=== PATIENT | male | born 1985 | race African-American/Black ===

== ENCOUNTER 2019-06-14 19:31 | Emergency (ER) | payer SELFPAY ==
[~2019-06-14] VITALS: Ht 175.3 cm; Wt 145.5 kg
[2019-06-14 19:54] LABS: BASO # 0.1 x10^3/uL (0.0-0.2); BASO % 1 % (0-3); EOS # 0.3 x10^3/uL (0.0-0.7); EOS % 4 % (0-3); HEMATOCRIT 44.6 % (39.0-53.0); HEMOGLOBIN 14.7 g/dL (13.0-17.5); LYMPH # 1.7 x10^3/uL (1.0-4.8); LYMPH % 23 % (24-48); MEAN CORPUSCULAR HEMOGLOBIN 28 pg (25-35); MEAN CORPUSCULAR HGB CONC 33 g/dL (31-37); MEAN CORPUSCULAR VOLUME 86 fL (79-100); MONO # 0.5 x10^3/uL (0.0-1.1); MONO % 7 % (0-9); NEUT # 4.9 x10^3/uL (1.8-7.7); NEUT % 66 % (31-73); PLATELET COUNT 304 x10^3/uL (140-400); RED BLOOD COUNT 5.19 x10^6/uL (4.30-5.70); RED CELL DISTRIBUTION WIDTH 14.5 % (11.5-14.5); WHITE BLOOD COUNT 7.4 x10^3/uL (4.0-11.0)
[2019-06-14 20:13] LABS: CALCIUM 9.2 mg/dL (8.5-10.1); GFR 102.9; POTASSIUM 4.3 mmol/L (3.5-5.1)
[2019-06-14 20:19] LABS: ALBUMIN 3.4 g/dL (3.4-5.0); TOTAL BILIRUBIN 0.3 mg/dL (0.2-1.0); TOTAL PROTEIN 6.9 g/dL (6.4-8.2)
--- NOTE | 2019-06-14 20:36 | RAD ---
AP chest. HISTORY: Chest pain AP view was taken of the chest. Lungs are clear. Heart is normal in size without heart failure. There is no pleural effusion. IMPRESSION: 1. No acute chest disease. Electronically signed by: Russell Sandra MD (06/14/2019 8:33 PM) [id number]
[2019-06-14] MEDS ORDERED: NITROGLYCERIN SUBLINGUAL 0.4 MG BOTTLE OF 25. SL ONE (22:45)
[2019-06-14] MEDS ORDERED: ASPIRIN CHEWABLE 81 MG TABLET. PO ONE (22:45)
[2019-06-14] MEDS ORDERED: CONTRAST GIVEN. MC PRN (22:45)
[2019-06-14] MEDS ORDERED: IOHEXOL 350 MG/ML 100 ML VIAL. IV ONE (22:45)
[2019-06-14] MEDS ORDERED: FAMOTIDINE 20 MG/2 ML VIAL IVP ONE (22:45)
--- NOTE | 2019-06-14 23:29 | RAD ---
PQRS Compliance Statement: One or more of the following individualized dose reduction techniques were utilized for this examination: 1. Automated exposure control 2. Adjustment of the mA and/or kV according to patient size 3. Use of iterative reconstruction technique CT CHEST WITH CONTRAST, PULMONARY ANGIOGRAM History: Chest pain. Comparison: None. Technique: Helical CT of the chest was performed after the administration of 100 cc of Omnipaque 350 intravenous contrast according to PE protocol. Axial and coronal reconstructions were obtained. 3-D MIP images were constructed to better evaluate the pulmonary arteries. Findings: Pulmonary arteries are adequately opacified. There is no evidence of pulmonary embolism. No thoracic aortic dissection. Mild bilateral gynecomastia. 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 Great vessels are normal caliber, there is pulsation artifact. Cardiac size normal, no pericardial effusion. No adenopathy in the chest. Subcentimeter bilateral hilar lymph nodes. There is no pleural abnormality. The central airways are patent. No lung consolidation. Borderline fatty infiltration of the liver. Thoracic spine alignment is maintained. IMPRESSION: 1. There is no pulmonary embolus. 2. Borderline fatty infiltration of the liver. Electronically signed by: Andrea Fisher MD (06/14/2019 11:26 PM) [id number]
[2019-06-15] VITALS: BP 103/66
[2019-06-15] MEDS ORDERED: TRAM50TA PO (00:07)
--- NOTE | 2019-06-15 04:50 | EKG ---
[facility] [address] [place] [address] Test Date: 2019-06-14 Test Time: 19:40:10 Pat Name: LIZZ RIVERA Department: Room: Gender: M [employer] Offset: : 1985 Requested By: EUGENIA WASHINGTON Order Number: [id number] Reading MD: Measurements Intervals [place] Rate: 68 P: 0 MA: 140 QRS: -8 QRSD: 94 T: 4 QT: 354 QTc: 377 Interpretive Statements SINUS RHYTHM LEFTWARD AXIS NO SPECIFIC ECG ABNORMALITIES RI6.01 No previous ECG available for comparison
--- NOTE | 2019-06-15 05:26 | PHYS DOC ---
Past Medical History Past Medical History: No Pertinent History Past Surgical History: No Surgical History Smoking Status: Never Smoker Alcohol Use: None Drug Use: None Adult General Chief Complaint Chief Complaint: CHEST PAIN HPI HPI Patient is a 34 year old male who presents with chest pain left pectoral region. Symptoms began yesterday at [place] while clapping. Chest pain is described as sharp and reproduces palpation, and limb movement. Denies shortness breath nausea vomiting and sweats. No leg pain or swelling. No other acute symptoms or complaints. [] Review of Systems Review of Systems ROS as per HPI All other systems were reviewed and found to be within normal limits, except as documented in this note. Current Medications Current Medications Current Medications Medications (Trade) Dose Ordered Sig/Lul Start Time Stop Time Status Last Admin Dose Admin Aspirin (Children'S Aspirin) 324 mg 1X ONCE 06/14/19 22:45 06/14/19 22:46 DC 06/14/19 22:57 324 MG Famotidine (Pepcid Vial) 20 mg 1X ONCE 06/14/19 22:45 06/14/19 22:46 DC 06/14/19 22:57 20 MG Info (CONTRAST GIVEN -- Rx MONITORING) 1 each PRN DAILY PRN 06/14/19 22:45 06/15/19 00:16 DC Iohexol (Omnipaque 350 Mg/ml) 100 ml 1X ONCE 06/14/19 22:45 06/14/19 22:46 DC 06/14/19 22:57 100 ML Nitroglycerin (Nitrostat) 0.4 mg 1X ONCE 06/14/19 22:45 06/14/19 22:46 DC 06/14/19 22:56 0.4 MG Allergies Allergies Allergies Coded Allergies Type Severity Reaction Last Updated Verified No Known Drug Allergies 06/14/19 No Physical Exam Physical Exam Constitutional: Well developed, well nourished, no acute distress, non-toxic appearance. [] HENT: Normocephalic, atraumatic, bilateral external ears normal, oropharynx moist, nose normal. [] Eyes: PERRLA, EOMI, conjunctiva normal, no discharge. [] Neck: Normal range of motion, no tenderness, supple, no stridor. [] Cardiovascular:Heart rate regular rhythm, no murmur [] Lungs & Thorax: Bilateral breath sounds clear to auscultation [] Abdomen: Bowel sounds normal, soft, no tenderness. [] Skin: Warm, dry, no erythema, no rash. [] Back: No tenderness. [] Extremities: No tenderness, no cyanosis, no clubbing, ROM intact, no edema. [] Neurologic: Alert and oriented X 3, CN -12 grossly intact, normal motor fu nction, normal sensory function, no focal deficits noted. [] Psychologic: Affect normal, judgement normal, mood normal. [] Current Patient Data Vital Signs Vital Signs Date Time Temp Pulse Resp B/P (MAP) Pulse Ox O2 Delivery O2 Flow Rate FiO2 06/15/19 00:00 72 13 103/66 (78) 99 Room Air 06/14/19 19:35 98.2 98.2 Lab Values Laboratory Tests Test 06/14/19 19:40 White Blood Count 7.4 x10^3/uL (4.0-11.0) Red Blood Count 5.19 x10^6/uL (4.30-5.70) Hemoglobin 14.7 g/dL (13.0-17.5) Hematocrit 44.6 % (39.0-53.0) Mean Corpuscular Volume 86 fL (79-100) Mean Corpuscular Hemoglobin 28 pg (25-35) Mean Corpuscular Hemoglobin Concent 33 g/dL (31-37) Red Cell Distribution Width 14.5 % (11.5-14.5) Platelet Count 304 x10^3/uL (140-400) Neutrophils (%) (Auto) 66 % (31-73) Lymphocytes (%) (Auto) 23 % (24-48) L Monocytes (%) (Auto) 7 % (0-9) Eosinophils (%) (Auto) 4 % (0-3) H Basophils (%) (Auto) 1 % (0-3) Neutrophils # (Auto) 4.9 x10^3/uL (1.8-7.7) Lymphocytes # (Auto) 1.7 x10^3/uL (1.0-4.8) Monocytes # (Auto) 0.5 x10^3/uL (0.0-1.1) Eosinophils # (Auto) 0.3 x10^3/uL (0.0-0.7) Basophils # (Auto) 0.1 x10^3/uL (0.0-0.2) D-Dimer (Altagracia) 0.54 ug/mlFEU (0.00-0.50) H Sodium Level 141 mmol/L (136-145) Potassium Level 4.3 mmol/L (3.5-5.1) Chloride Level 104 mmol/L (98-107) Carbon Dioxide Level 29 mmol/L (21-32) Anion Gap 8 (6-14) Blood Urea Nitrogen 10 mg/dL (8-26) Creatinine 1.0 mg/dL (0.7-1.3) Estimated GFR (Cockcroft-Gault) 102.9 BUN/Creatinine Ratio 10 (6-20) Glucose Level 111 mg/dL (70-99) H Calcium Level 9.2 mg/dL (8.5-10.1) Total Bilirubin 0.3 mg/dL (0.2-1.0) Aspartate Amino Transferase (AST) 24 U/L (15-37) Alanine Aminotransferase (ALT) 47 U/L (16-63) Alkaline Phosphatase 86 U/L (46-116) Troponin I Quantitative < 0.017 ng/mL (0.000-0.055) Total Protein 6.9 g/dL (6.4-8.2) Albumin 3.4 g/dL (3.4-5.0) Albumin/Globulin Ratio 1.0 (1.0-1.7) Laboratory Tests 06/14/19 19:40 Laboratory Tests 06/14/19 19:40 EKG EKG [EKG: NSR] Radiology/Procedures Radiology/Procedures [CXR: NAD] CTA chest: No evidence of PE Course & Med Decision Making Course & Med Decision Making Pertinent Labs and Imaging studies reviewed. (See chart for details) [Atypical chest pain. EKG labs and imaging reviewed and reassuring. Recommend supportive care with PCP follow-up. Return precautions reviewed.] Dragon Disclaimer Dragon Disclaimer This electronic medical record was generated, in whole or in part, using a voice recognition dictation system. Departure Departure Impression: Primary Impression: Chest pain Disposition: 01 HOME, SELF-CARE Condition: GOOD Referrals: NO PCP (PCP) Patient Instructions: Chest Pain (Nonspecific), [id number] Additional Instructions: You evaluated emergency department for chest pain. EKG lab and imaging studies were performed and are nondiagnostic. The cause of your symptoms has not been determined. Take Tylenol for pain and tramadol for additional relief. Follow-up with your PCP in 2-3 days for reevaluation. Return to the ED if new or worsening symptoms. Scripts Tramadol Hcl (TRAMADOL HCL) 50 Mg Tablet 50 MG PO Q6H PRN for PAIN for 3 Days, #15 TAB 0 Refills Prov: EUGENIA WASHINGTON DO 06/15/19 EUGENIA WASHINGTON DO Jun 15, 2019 05:26
== END 2019-06-15 00:15 | disposition home or self-care (01) ==
LOC: ER 19:31
DX: R07.89 Other chest pain (principal)
CPT/HCPCS: 36415; 71045; 71275; 80053; 84484; 85025; 85379; 93005; 96374; 99285; J3490; Q9967